=== PATIENT | male | born 1985 | race Caucasian/White ===

== ENCOUNTER 2021-01-25 07:21 | Outpatient (REF) | payer OTHER, SELFPAY ==
[2021-01-25 07:50] LABS: COVID-19 Test Positive (Negative)
== END 2021-01-25 07:22 | disposition home or self-care (01) ==
LOC: HO.LAB 07:21
PROVIDERS: Visit Provider Internal Medicine
DX: Z20.822 Contact with and (suspected) exposure to COVID-19 (principal)
CPT/HCPCS: 36415; 87635; C9803

== ENCOUNTER 2021-02-03 10:32 | Outpatient (REF) | payer OTHER, SELFPAY ==
[2021-02-03 12:11] LABS: COVID-19 Test Negative (Negative)
== END 2021-02-03 10:33 | disposition home or self-care (01) ==
LOC: HO.LAB 10:32
PROVIDERS: Visit Provider Internal Medicine
DX: Z20.822 Contact with and (suspected) exposure to COVID-19 (principal)
CPT/HCPCS: 36415; 87635; C9803